=== PATIENT | female | born 1990 | race Hispanic/Latino ===

== ENCOUNTER 2023-11-12 12:23 | Inpatient (IN) | payer MEDICAID, OTHER ==
[2023-11-12 13:06] VITALS: BMI 34.7
[2023-11-12] MEDS ORDERED: Carboprost 250 MCG/ML AMP IM PRN (13:18)
[2023-11-12] MEDS ORDERED: Promethazine HCl 25 MG/ML VIAL IM PRN (13:18)
[2023-11-12] MEDS ORDERED: hydrALAZINE 20 MG/ML VIAL SLOW IVP PRN (13:18)
[2023-11-12] MEDS ORDERED: Tranexamic Acid 1,000 MG/10 ML VIAL IVP PRN (13:18)
[2023-11-12] MEDS ORDERED: Calcium Gluc 4.6 MEQ/10 ML (100 MG/ML) SLOW IVP PRN (13:18)
[2023-11-12] MEDS ORDERED: Misoprostol 200 MCG TAB PR PRN (13:18)
[2023-11-12] MEDS ORDERED: Labetalol HCl 100 MG/20 ML VIAL SLOW IVP PRN (13:18)
[2023-11-12] MEDS ORDERED: Diphenoxylate HCl/Atropine Tablet PO PRN (13:18)
[2023-11-12] MEDS: hydrALAZINE 20 MG/ML VIAL ONE (13:30)
[2023-11-12] MEDS ORDERED: Oxytocin 30 units/NS 500 ML 500 ML IV SCH (13:30)
[2023-11-12] MEDS: hydrALAZINE 20 MG/ML VIAL SLOW IVP PRN (13:52)
[2023-11-12] MEDS: Betamet Acet/Betamet Na Ph 30 MG/5 ML VIAL IM SCH (13:53)
[2023-11-12] MEDS: Labetalol HCl 100 MG TAB PO SCH (13:53)
[2023-11-12] MEDS: Magnesium Sulfate 20 gm/500 ml 20 GM/500 ML BAG IVPB SCH (14:02)
[2023-11-12 14:19] LABS: Hematocrit 35.4 % (34.9-44.5); Hemoglobin 12.9 g/dL (12.0-15.5); Mean Corpuscular HGB CONC 36.4 g/dL (32.0-36.0); Mean Corpuscular Hemoglobin 31.4 pg (27.0-33.0); Mean Corpuscular Volume 86.1 fL (81.6-98.3); RBC Distribution Width 13.9 % (11.5-14.5); Red Blood Cell (RBC) Count 4.11 10x6/uL (3.90-5.03); White Blood Cell (WBC) Count 9.1 10x3/uL (3.5-10.5)
[2023-11-12 14:20] LABS: Platelet Count 215 10x3/uL (130-400)
[2023-11-12 14:21] LABS: Mean Platelet Volume 12.8 fL (7.4-10.4)
[2023-11-12 14:34] LABS: ALT (SGPT) 53 U/L (8-55); AST (SGOT) 48 U/L (5-34); Albumin 3.1 g/dL (3.5-5.0); Alkaline Phosphatase 182 U/L (40-110); Anion Gap 15 mmol/L (10-20); BUN (Urea Nitrogen) 12 mg/dL (7.0-18.7); Bilirubin, Total 0.2 mg/dL (0.2-1.2); Calc. Creatinine Clearance 174 mL/min (70-130); Calcium 9.1 mg/dL (7.8-10.44); Carbon Dioxide 19 mmol/L (22-29); Chloride 107 mmol/L (98-107); Estimated GFR 121; Globulin 3.8 g/dL (2.4-3.5); Glucose 81 mg/dL (70-105); Potassium 3.7 mmol/L (3.5-5.1); Protein, Total 6.9 g/dL (6.0-8.3); Sodium 137 mmol/L (136-145)
[2023-11-12 14:51] LABS: HBsAg Index 0.15 S/CO (0-0.99); Hep B Surf Ag - L&D Non-Reactive S/CO (NonReactive)
[2023-11-12 14:53] LABS: Syphilis Antibody Nonreactive (Nonreactive); Syphilis Antibody Index 0.09 S/CO (<1.00 Non-Reactive)
[2023-11-12 15:47] LABS: Creatinine, Urine 77.7 mg/dL (47-110)
[2023-11-12] MEDS: Calcium Carbonate 500 MG ChewTAB PO PRN (20:05)
[2023-11-12 20:47] LABS: Uric Acid 4.3 mg/dL (2.6-6.0)
[2023-11-12] MEDS: Ondansetron PF 4 MG/2 ML Vial IVP PRN (22:57)
[2023-11-12] MEDS: Lactated Ringer's 1,000 ML IV SCH (22:57)
[2023-11-13] MEDS: Acetaminophen 500 MG TAB PO PRN (03:42)
[2023-11-13 04:33] LABS: ALT (SGPT) 54 U/L (8-55); AST (SGOT) 46 U/L (5-34); Albumin 2.8 g/dL (3.5-5.0); Alkaline Phosphatase 156 U/L (40-110); Anion Gap 15 mmol/L (10-20); BUN (Urea Nitrogen) 7 mg/dL (7.0-18.7); Bilirubin, Total 0.2 mg/dL (0.2-1.2); Calc. Creatinine Clearance 189 mL/min (70-130); Calcium 8.1 mg/dL (7.8-10.44); Carbon Dioxide 18 mmol/L (22-29); Chloride 107 mmol/L (98-107); Estimated GFR 123; Globulin 3.9 g/dL (2.4-3.5); Glucose 119 mg/dL (70-105); Potassium 3.7 mmol/L (3.5-5.1); Protein, Total 6.7 g/dL (6.0-8.3); Sodium 136 mmol/L (136-145)
[2023-11-13] MEDS: hydrALAZINE 20 MG/ML VIAL SLOW IVP PRN (08:32)
[2023-11-13] MEDS: Lorazepam 2 MG/ML VIAL SLOW IVP PRN (10:24)
[2023-11-13 16:18] LABS: Analyzer IN Cardio CS NICU; RapidComm Collect By RN; pH (Cord, venous) 7.319 (7.250-7.350)
[2023-11-13 16:20] LABS: Analyzer IN Cardio CS NICU; RapidComm Collect By RN
[2023-11-13] MEDS ORDERED: Meperidine HCl/PF 25 MG (1 mL) VIAL SLOW IVP PRN (16:52)
[2023-11-13] MEDS ORDERED: Ondansetron PF 4 MG/2 ML Vial IVP PRN ×2 (16:52)
[2023-11-13] MEDS ORDERED: Naloxone HCl 0.4 mg/ml Vial IV PRN (16:52)
[2023-11-13] MEDS ORDERED: Naloxone HCl 0.4 mg/ml Vial IVP PRN ×2 (16:52)
[2023-11-13] MEDS ORDERED: Moisturizing Cream (Eucerin) 113 GM JAR TOP PRN (16:52)
[2023-11-13] MEDS ORDERED: fentaNYL 50 mcg/mL 1 mL Vial SLOW IVP PRN (16:52)
[2023-11-13] MEDS ORDERED: Communication Order-Pharmacy FS SCH (17:00)
[2023-11-13] MEDS: CEFAZOLIN 2 GM VIAL ONE (19:43)
[2023-11-13] MEDS: Dexmedetomidine 200 MCG/2 ML VIAL ONE (19:43)
[2023-11-13] MEDS: Phenylephrine 40 MG/NS 250 ML 250 ML ONE (19:43)
[2023-11-13] MEDS: fentaNYL 50 mcg/mL 1 mL Vial ONE (19:43)
[2023-11-13] MEDS: Morphine PF 10 MG/10 ML VIAL ONE (19:43)
[2023-11-13] MEDS: Fentanyl 250 MCG/5 ML VIAL ONE (19:44)
[2023-11-13] MEDS: Phytonadione Neonatal 1 MG/0.5 ML AMP ONE (19:44)
[2023-11-13] MEDS: Ondansetron PF 4 MG/2 ML Vial ONE (19:44)
[2023-11-13] MEDS: Oxytocin 10 UNITS/ML VIAL ONE (19:44)
[2023-11-13] MEDS: Erythromycin Base 0.5% Oint 1 GM TUBE ONE (19:44)
[2023-11-13] MEDS: Ketorolac Tromethamine 30 MG (1 mL) VIAL ONE (19:44)
[2023-11-13] MEDS: PROPOFOL 0 ML ONE (19:44)
[2023-11-13] MEDS: Promethazine HCl 25 MG/ML VIAL IM PRN (19:58)
[2023-11-13 20:26] LABS: Magnesium 4.9 mg/dL (1.6-2.6)
[2023-11-13 21:45] LABS: Magnesium 6.4 mg/dL (1.6-2.6)
[2023-11-13] MEDS: Ketorolac Tromethamine 30 MG (1 mL) VIAL IVP SCH (22:02)
[2023-11-14 01:59] LABS: ALT (SGPT) 85 U/L (8-55); AST (SGOT) 74 U/L (5-34); Albumin 2.6 g/dL (3.5-5.0); Alkaline Phosphatase 125 U/L (40-110); Anion Gap 14 mmol/L (10-20); BUN (Urea Nitrogen) 13 mg/dL (7.0-18.7); Bilirubin, Total Less than 0.2 mg/dL (0.2-1.2); Calc. Creatinine Clearance 145 mL/min (70-130); Calcium 6.9 mg/dL (7.8-10.44); Carbon Dioxide 19 mmol/L (22-29); Chloride 103 mmol/L (98-107); Critical Call Chemistry NUR.SD10@0159; Estimated GFR 107; Globulin 3.6 g/dL (2.4-3.5); Glucose 147 mg/dL (70-105); Magnesium 6.3 mg/dL (1.6-2.6); Potassium 3.8 mmol/L (3.5-5.1); Protein, Total 6.2 g/dL (6.0-8.3); Sodium 132 mmol/L (136-145)
[2023-11-14] MEDS: diphenhydrAMINE 50 MG/ML VIAL IVP PRN (04:04)
[2023-11-14 09:34] LABS: Hematocrit 25.4 % (34.9-44.5); Hemoglobin 8.7 g/dL (12.0-15.5); Mean Corpuscular HGB CONC 34.3 g/dL (32.0-36.0); Mean Corpuscular Hemoglobin 31.1 pg (27.0-33.0); Mean Corpuscular Volume 90.7 fL (81.6-98.3); Mean Platelet Volume 12.4 fL (7.4-10.4); Platelet Count 201 10x3/uL (150-450); RBC Distribution Width 15.2 % (11.5-14.5); White Blood Cell (WBC) Count 9.2 10x3/uL (3.5-10.5)
[2023-11-14 09:56] LABS: ALT (SGPT) 80 U/L (8-55); AST (SGOT) 67 U/L (5-34); Albumin 2.7 g/dL (3.5-5.0); Alkaline Phosphatase 125 U/L (40-110); Anion Gap 15 mmol/L (10-20); BUN (Urea Nitrogen) 13 mg/dL (7.0-18.7); Bilirubin, Total 0.2 mg/dL (0.2-1.2); Calc. Creatinine Clearance 157 mL/min (70-130); Carbon Dioxide 21 mmol/L (22-29); Chloride 102 mmol/L (98-107); Critical Call Chemistry NUR.CD4 @0955; Estimated GFR 118; Globulin 3.6 g/dL (2.4-3.5); Glucose 105 mg/dL (70-105); Magnesium 5.6 mg/dL (1.6-2.6); Potassium 4.5 mmol/L (3.5-5.1); Protein, Total 6.3 g/dL (6.0-8.3); Sodium 133 mmol/L (136-145)
[2023-11-14] MEDS ORDERED: Lanolin Ointment 7 GM TUBE TOP PRN (17:12)
[2023-11-14] MEDS ORDERED: Bisacodyl 10 MG SUPP PR PRN (17:12)
[2023-11-14] MEDS ORDERED: Ondansetron PF 4 MG/2 ML Vial IVP PRN (17:12)
[2023-11-14] MEDS ORDERED: Meperidine HCl/PF 25 MG (1 mL) VIAL IM PRN (17:12)
[2023-11-14] MEDS ORDERED: hydrALAZINE 20 MG/ML VIAL SLOW IVP PRN (17:12)
[2023-11-14] MEDS ORDERED: Simethicone Chewable 80 MG TAB PO PRN (17:12)
[2023-11-14] MEDS ORDERED: Promethazine HCl 25 MG/ML VIAL IM PRN (17:12)
[2023-11-14] MEDS ORDERED: diphenhydrAMINE 25 MG CAP PO PRN (17:12)
[2023-11-14] MEDS: Ferrous Sulfate 325 MG TAB PO SCH (19:02)
[2023-11-14] MEDS: Docusate 100 MG CAP PO SCH ×2 (19:02→20:49)
[2023-11-14] MEDS: Prenatal Vitamin 1 TAB PO SCH (19:02)
[2023-11-14] MEDS: Ibuprofen 800 MG TAB PO SCH (20:48)
[2023-11-14] MEDS: Fluconazole 100 MG TAB PO SCH (20:49)
[2023-11-14] MEDS: HYDROcodone/Acetaminophen 5/325 mg Tablet PO PRN (22:10)
[2023-11-15 03:54] LABS: Hematocrit 22.2 % (34.9-44.5); Hemoglobin 7.6 g/dL (12.0-15.5); Mean Corpuscular HGB CONC 34.2 g/dL (32.0-36.0); Mean Corpuscular Hemoglobin 31.1 pg (27.0-33.0); Mean Platelet Volume 12.2 fL (7.4-10.4); Platelet Count 170 10x3/uL (150-450); RBC Distribution Width 15.3 % (11.5-14.5); Red Blood Cell (RBC) Count 2.44 10x6/uL (3.90-5.03); White Blood Cell (WBC) Count 8.9 10x3/uL (3.5-10.5)
[2023-11-15 04:09] LABS: ALT (SGPT) 63 U/L (8-55); AST (SGOT) 50 U/L (5-34); Albumin 2.3 g/dL (3.5-5.0); Alkaline Phosphatase 107 U/L (40-110); Anion Gap 10 mmol/L (10-20); BUN (Urea Nitrogen) 19 mg/dL (7.0-18.7); Bilirubin, Total Less than 0.2 mg/dL (0.2-1.2); Calc. Creatinine Clearance 177 mL/min (70-130); Carbon Dioxide 23 mmol/L (22-29); Chloride 106 mmol/L (98-107); Estimated GFR 121; Globulin 3.1 g/dL (2.4-3.5); Glucose 105 mg/dL (70-105); Potassium 4.4 mmol/L (3.5-5.1); Protein, Total 5.4 g/dL (6.0-8.3); Sodium 135 mmol/L (136-145)
[2023-11-15] MEDS: Boostrix 0.5 ML (Tdap) VIAL (>/=7 yrs of age) IM ONE (07:57)
[2023-11-15] MEDS: Prenatal Vitamin 1 TAB PO SCH (08:34)
[2023-11-15] MEDS: Ferrous Sulfate 325 MG TAB PO SCH (08:34)
[2023-11-15] MEDS: HYDROcodone/Acetaminophen 5/325 mg Tablet PO PRN (12:27)
[2023-11-15] MEDS: Labetalol HCl 200 MG TAB PO SCH (21:00)
[2023-11-16] MEDS: Labetalol HCl 200 MG TAB PO SCH (22:22)
[2023-11-18 17:16] VITALS: BP 129/60; TEMP 99.1
== END 2023-11-18 18:30 | disposition home or self-care (01) | DRG 788 ==
LOC: CSHLD 12:23 → OBSVTOIN 12:23 → CSHLD 11-13 08:43 → CSHPP 11-14 16:53
PROVIDERS: ADMIT Family Medicine; ATTEND Family Medicine
PROC: 10D00Z1 Extraction of Products of Conception, Low, Open Approach (ICD-10-PCS; principal; 2023-11-13)
DX: O14.14 Severe pre-eclampsia complicating childbirth (principal); E66.9 Obesity, unspecified; O45.93 Premature separation of placenta, unspecified, third trimester; O99.214 Obesity complicating childbirth; Z3A.30 30 weeks gestation of pregnancy; Z37.0 Single live birth; O76 Abnormality in fetal heart rate and rhythm complicating labor and delivery; O36.5930 Maternal care for other known or suspected poor fetal growth, third trimester, not applicable or unspecified
CPT/HCPCS: 36415; 51702; 76815; 80053; 82570; 82805; 83735; 84156; 84550; 85027; 86780; 86850; 86900; 86901; 87340; 88307; J0360; J0702; J1200; J1885; J2060; J2274; J2405; J2550; J2590; J2704; J3010; J3475; J7120